=== PATIENT | female | born 1965 | race Caucasian/White ===

== ENCOUNTER 2020-06-03 12:33 | Emergency (ER) | payer MEDICAID ==
[~2020-06-03] VITALS: Ht 160 cm; Wt 68.0 kg
[2020-06-03 12:33] VITALS: BP_SYST 140
--- NOTE | 2020-06-03 12:33 | NUR ---
Patient to ER bed 1 to gown for evaluation. Side rails up. Report given to WILFRID Zavala.
--- NOTE | 2020-06-03 12:45 | NUR ---
PT PRESENTED TO ER C/O DIZZINESS. PT BIB BLS, A&OX4, SKIN PINK & WARM, AFEBRILE, DENIES PAIN, NAUSEA, DENIES V/D.
[2020-06-03] MEDS ORDERED: METOCLOPRAMIDE HCL 10 MG/2 ML VIAL IVP ONE (13:00)
[2020-06-03] MEDS ORDERED: NACL 0.9% 1,000 ML IV ONE (13:00)
--- NOTE | 2020-06-03 13:00 | NUR ---
ER at bedside examining patient.
[2020-06-03 15:20] VITALS: BP_SYST 135
--- NOTE | 2020-06-03 15:20 | NUR ---
Patient given written and verbal discharge instructions and verbalizes understanding. ER MD discussed with patient the results and treatment provided. Patient in stable condition. ID arm band removed. IV catheter removed intact and dressing applied, no active bleeding. Rx of ANTIVERT & DEBROX given. Patient educated on pain management and to follow up with PMD. Pain Scale 0/10. Opportunity for questions provided and answered. Medication side effect fact sheet provided.
== END 2020-06-03 15:20 | disposition home or self-care (01) ==
LOC: SED 12:33
DX: R42 Dizziness and giddiness (principal); E78.5 Hyperlipidemia, unspecified; R11.2 Nausea with vomiting, unspecified
CPT/HCPCS: 96361; 96374; 99283; J2765; J7030